=== PATIENT | female | born 1980 | race African-American/Black ===

== ENCOUNTER 2020-05-19 11:41 | Emergency (ER) | payer OTHER, SELFPAY ==
[2020-05-19] VITALS (20 sets, daily range): BP systolic 117–161; BP diastolic 75–108; PULSE 86–113; RESP 13–20; TEMP 37; O2SAT 90–100
--- NOTE | ~2020-05-19 | XR_ITS ---
EXAMINATION: XR abdomen/kub 1V EXAM DATE: 05/19/2020 13:31 INDICATION: Constipation. TECHNIQUE: Frontal projection(s) of the abdomen for interpretation. There is no prior study for atul shoemaker. FINDINGS: Nonobstructive bowel gas pattern with only small amount of colonic stool and gas. There is no organomegaly. Lumbar spine, pelvis appears diffusely dense, nonspecific osteosclerosis. Some differential considera tions include myelofibrosis, mastocytosis, sickle cell disease, renal osteodystrophy, hyperparathyroi dism or possibly metastatic disease. Mild lumbar levoscoliosis. IMPRESSION: 1. Small amount of colonic stool and gas. 2. Diffuse nonspecific dense appearing bones. Please clinically correlate. Reviewed, dictated and finalized at location B. ATTACHER
--- NOTE | ~2020-05-19 | XR_ITS ---
EXAMINATION: XR chest 1V portable INDICATION: Headache and chest pain TECHNIQUE: Portable AP chest at 1238 hours COMPARISON: 09/07/2018 FINDINGS: Patchy bilateral opacities are present. The heart size is upper limits of normal for techni que. There is no pleural effusion or pneumothorax. The mediastinal silhouette is normal. The visualiz ed osseous structures are unremarkable. IMPRESSION: 1. Patchy bilateral opacities, consistent with pneumonia versus atelectasis versus pulmonary edema. Reviewed, dictated and finalized at location A. R LAYER APPRENTICE IMPRESSION: 1. Patchy bilateral opacities, consistent with pneumonia versus atelectasis gal [place] pulmonary edema.
--- NOTE | 2020-05-19 12:13 | ECG_ITS ---
Measurements Intervals [place] Rate: 94 P: 56 SC: 141 QRS: 3 QRSD: 93 T: 21 QT: 372 QTc: 466 Interpretive Statements SINUS RHYTHM DELAYED PRECORDIAL R/S TRANSITION BORDERLINE ECG Electronically Signed On 05-19-2020 12:18:26 [employer] SLICER by Jonah Flores D.O.
[2020-05-19 13:46] LABS: Basophils Absolute Auto 0.1 K/mm3 (0.0-0.1); Basophils Percent Auto 0.6 % (0.2-1.2); Eosinophils Absolute Auto 0.3 K/mm3 (0-0.3); Eosinophils Percent Auto 2.4 % (0-4.4); Hematocrit 39.6 % (37.0-47.0); Hemoglobin 12.8 g/dL (12.0-15.0); Immature Granulocyte Absolute 0.03 K/mm3 (0.00-0.031); Immature Granulocyte Percent A 0.3 % (0-0.5); Lymphocytes Absolute Auto 3.57 K/mm3 (0.9-3.2); Lymphocytes Percent Auto 32.1 % (18.3-44.2); Mean Corpuscular HGB Conc 32.3 g/dl (32-36); Mean Corpuscular Volume 89.8 fl (80-100); Mean Platelet Volume 9.8 fl (7.4-10.4); Monocytes Absolute Auto 0.7 K/mm3 (0.1-0.6); Monocytes Percent Auto 6.6 % (2.6-8.5); Neutrophils Absolute Auto 6.4 K/mm3 (1.3-6.7); Platelet Count Result 495 k/mm3 (150-375); Red Blood Count 4.41 M/mm3 (4.2-5.4); Red Cell Distribution Width 17.6 % (11.5-14.5); White Blood Count 11.1 K/mm3 (4.5-10.0)
[2020-05-19 13:51] LABS: Add Urine Microscopic? YES; Appearance Urine Clear (Clear); Bacteria Urine Trace /hpf; Bilirubin Urine Negative (Negative); Blood Urine Negative (Negative); Color Urine Yellow (Yellow); Glucose Urine UA Negative (Negative); Ketones Urine Negative (Negative); Leukocyte Esterase Ur Negative LEU/UL (Negative); Mucus Urine Rare /lpf; Nitrate Urine Negative (Negative); Protein Urine 1+ mg/dL (Negative); RBC Urine 0-2 /hpf (0-2); Specific Grav Ur 1.023 (1.001-1.035); Squamous Epithelial Cell Urine Few /hpf (Few); Urobilinogen Urine Negative mg/dL (<2.0); WBC Urine 0-3 /hpf
--- NOTE | 2020-05-19 14:03 | ED.GENADULT ---
HPI - General Adult General Chief complaint: Dizziness Stated complaint: cp/htn/dizzy x 5 days/constipation Time Seen by Provider: 05/19/20 11:57 Source: patient Mode of arrival: ambulatory Limitations: no limitations History of Present Illness HPI narrative: Patient presents with chief complaint of dizziness, fatigue and chest pressure that began on Monday. Patient states that she was exposed to a family friend who is having Covid symptoms and being tested and treated as a person under investigation. Patient states that she spends almost every day with the person Monday through Monday. Patient states that she was at work today and she also noticed that her blood pressure has been slightly elevated despite taking her blood pressure medications 150s over 90s. Patient states that she also has chronic constipation over 3 months and her primary care told her to start Metamucil, but she feels she should be here passing more stools. Patient states that her appetite has been decreased since starting her new diabetic injection medications 2 months ago and her A1c has improved and she has lost 35 pounds. She states her primary care thinks it is working well however she does not like the decreased appetite. Related Data Allergies Allergy/AdvReac Type Severity Reaction Status Date / Time No Known Allergies Allergy Unverified 09/07/18 09:50 Review of Systems Review of Systems: Narrative: CONSTITUTIONAL: Reports fatigue denies fever, chills, or sweats. EYES: Denies visual changes, redness, or discharge. ENT: Denies rhinorrhea, congestion, sore throat, or otalgia. CARDIOVASCULAR: Reports sternal pressure denies left-sided chest pain, palpitations, or edema. RESPIRATORY: Denies cough or dyspnea. GASTROINTESTINAL: Denies abdominal pain, nausea, vomiting, or diarrhea. GENITOURINARY: Denies dysuria or hematuria. SKIN: Denies rash or itching. MUSCULOSKELETAL: Denies back pain, joint pain, or myalgia. NEUROLOGIC: Reports dizziness with change of position denies headache, numbness, or weakness. PSYCHIATRIC: Denies anxiety or depression. PMFSH Past Medical History Medical History (Updated 05/19/20 @ 14:13 by Santy Reyes PA-C) Diabetes mellitus type 2, uncontrolled Exam Narrative: Exam Narrative: GENERAL: Well-appearing, well-nourished, morbidly obese HEAD: Normocephalic, atraumatic. EYES: PERRLA and EOMI. NECK: Supple. No adenopathy or masses. CHEST: Clear to auscultation. No respiratory distress. No wheezes rales or rhonchi HEART: Regular rate and rhythm. No murmur heard. Normal peripheral pulses. ABDOMEN: Soft, nontender, nondistended, normal active bowel sounds. EXTREMITIES: Normal range of motion. No edema. SKIN: Psoriasis noted to patient's extremities and trunk.warm, dry, no rash. NEURO: No focal deficits. Alert and oriented x3. PSYCH: Normal mood and affect. Course Vital Signs Vital signs: Vital Signs Temperature 98.6 F 05/19/20 11:45 Pulse Rate 95 05/19/20 11:45 Respiratory Rate 18 05/19/20 11:45 Blood Pressure 147/93 H 05/19/20 11:45 Pulse Oximetry 100 05/19/20 11:45 Temperature 98.6 F 05/19/20 11:45 Pulse Rate 95 05/19/20 11:45 Respiratory Rate 18 05/19/20 11:45 Blood Pressure 147/93 H 05/19/20 11:45 Pulse Oximetry 100 05/19/20 11:45 Medical Decision Making [facility] Narrative Medical decision making narrative: Patient chest x-ray suggest patient has Covid. Patient does have some areas in her bones which seems to be further investigated by her primary care. Patient will be given report and instructions to follow-up with her primary care for further investigation into these x-ray findings. Otherwise patient's vitals are stable. She is not hypoxic. She has been given 1 dose of potassium due to potassium level of 3.3 and knowing the patient does take insulin. Vital Signs Vital Signs: Vital Signs Temperature 98.6 F 05/19/20 11:45 Pulse Rate 95 05/19/20 11:45 Respiratory Rate 18
[2020-05-19 14:04] LABS: Alanine Aminotransferase 24 U/L (4-35); Alkaline Phosphatase 78 U/L (38-126); Anion Gap 4 mmol/L (8-16); Aspartate Amino Transferase 45 U/L (14-36); Bilirubin,Total 0.4 mg/dL (0.2-1.3); Blood Urea Nitrogen 15 mg/dL (7-17); Calcium 9.1 mg/dL (8.4-10.2); Carbon Dioxide 39 mmol/L (22-30); Chloride 94 mmol/L (98-107); Estimated CRCL calculation 101 ml/min; Estimated Glomerular Filt Rate > 60; Glucose 104 mg/dL (65-105); Potassium 3.3 mmol/L (3.4-5.0); Sodium 137 mmol/L (137-145)
[2020-05-19 14:16] LABS: Troponin I < 0.012 ng/mL (0.000-0.034)
[2020-05-19] MEDS: POTASSIUM CHLORIDE 20 MEQ TABLET 40 MEQ PO (14:16)
[2020-05-20 00:16] LABS: SARS-CoV-2 RNA PCR Negative
== END 2020-05-19 15:11 | disposition home or self-care (01) ==
PROVIDERS: Physician Assistant; Emergency Provider Emergency Medicine; PCP Internal Medicine
DX: U07.1 COVID-19 (principal); E11.9 Type 2 diabetes mellitus without complications; I10 Essential (primary) hypertension; E66.9 Obesity, unspecified; Z68.43 Body mass index [BMI] 50.0-59.9, adult; R94.31 Abnormal electrocardiogram [ECG] [EKG]; R91.8 Other nonspecific abnormal finding of lung field; M85.89 Other specified disorders of bone density and structure, multiple sites
CPT/HCPCS: 36415; 71045; 74018; 80053; 81001; 84484; 85025; 93005; 99284; A9270; C9803; U0003; U0005

== ENCOUNTER 2020-07-24 11:04 | Outpatient (CLI) | payer OTHER, SELFPAY | END 2020-07-24 11:05 | disposition home or self-care (01) | LOC: ANHCOVIDVC 11:04 | PROVIDERS: PCP Internal Medicine Endocrinology, Diabetes & Metabolism | DX: Z23 Encounter for immunization (principal) | CPT/HCPCS: 0001A; 91300 ==

== ENCOUNTER 2020-08-14 11:04 | Outpatient (CLI) | payer OTHER, SELFPAY | END 2020-08-14 11:05 | disposition home or self-care (01) | LOC: ANHCOVIDVC 11:04 | PROVIDERS: PCP Internal Medicine Endocrinology, Diabetes & Metabolism | DX: Z23 Encounter for immunization (principal) | CPT/HCPCS: 0002A; 91300 ==